=== PATIENT | male | born 1995 | race Caucasian/White ===

== ENCOUNTER 2019-11-06 00:43 | Emergency (ER) | payer OTHER ==
--- NOTE | 2019-11-06 01:59 | ER Document Report ---
HPI - HPI Time Seen by Provider: 11/06/19 01:46 Pain Level: 2 Context: Patient is a 23-year-old male that comes to the emergency department for chief complaint of left ankle injury. Patient states he was stepping out of the back of a truck and accidentally landed on an uneven surface and inverted his ankle. He states that he felt a pop and sharp pain running up his leg. He states the area has become swollen and difficult to walk on. He denies knee pain, hip pain , numbness, fall injury, or any other complaints. He takes noted in medications, denies any medical history except for a previously broken bone into the left foot but not left ankle. He denies having surgery for this. Past Medical History - General Information source: Patient - Social History Smoking Status: Never Smoker Frequency of alcohol use: None Drug Abuse: None Lives with: Family Family History: Reviewed & Not Pertinent Patient has homicidal ideation: No - Medical History Medical History: Negative Surgical Hx: Negative - Immunizations Immunizations up to date: Yes Hx Diphtheria, Pertussis, Tetanus Vaccination: Yes Vertical Provider Document - CONSTITUTIONAL General Appearance: WD/WN, No Apparent Distress - HEENT HEENT: Atraumatic, Normal ENT Exam, Normocephalic - NECK Neck: Normal Inspection - RESPIRATORY Respiratory: Breath Sounds Normal, No Respiratory Distress - CARDIOVASCULAR Cardiovascular: Regular Rate, Regular Rhythm. negative: Tachycardia - GI/ABDOMEN Gastrointestinal: Abdomen Soft, Abdomen Non-Tender. negative: Abdomen Tender - BACK Back: Normal Inspection - MUSCULOSKELETAL/EXTREMETIES Musculoskeletal/Extremeties: MAEW, FROM, Tender - There is soft tissue swelling over both the medial and lateral malleolus of the left foot, there is pain at the ankle. There is no severe swelling, discoloration, and there are no open wounds. Normal foot exam, normal toes, normal capillary refill and sensation. Normal leg, knee, hip exam. - NEURO Level of Consciousness: Awake, Alert, Appropriate Motor/Sensory: No Motor Deficit, No Sensory Deficit Course - Re-evaluation Re-evalutation: 11/06/19 01:59 Patient declined any type of pain medication. Evaluation shows soft tissue swelling at the ankle but no concerning findings otherwise, no deficits. No other signs of trauma. X-rays negative for acute findings. I discussed with patient, discussed sprain, care, expectations, follow-up, return cautions. Patient states appreciation and agreement. - Vital Signs Vital signs: Temp Pulse Resp BP Pulse Ox 99.5 F 108 H 16 158/74 H 98 11/06/19 00:55 11/06/19 00:55 11/06/19 00:55 11/06/19 00:55 11/06/19 00:55 Procedures - Immobilization Left ankle Pre-Proc Neuro Vasc Exam: Normal Immobilizer type: Juno wrap, Ankle stirrup Performed by: PCT Post-Proc Neuro Vasc Exam: Normal Alignment checked and good: Yes Discharge - Discharge Clinical Impression: Soft tissue swelling Left ankle injury Qualifiers: Encounter type: initial encounter Qualified Code(s): S99.912A - Unspecified injury of left ankle, initial encounter Condition: Stable Disposition: HOME, SELF-CARE Additional Instructions: The x-ray does not show a fracture or concerning finding. Your evaluation is consistent with sprain of the ankle joint, probably at the ATF ligament. I recommend that you ice this 3-4 times a day for 10 to 15 minutes, elevate whenever possible, use the ankle stirrup and Juno wrap along with crutches for the first 2 to 3 days. Take the anti-inflammatory as prescribed. After swelling and pain resolved resume normal activity. Follow-up with primary care. Return for any concerning or worsening symptoms including severe worsening swelling or pain. Prescriptions: Naproxen 500 mg PO BID PRN #14 tablet PRN Reason: Forms: Return to Work
--- NOTE | 2019-11-06 02:18 | RADIOLOGY REPORT (SQ) ---
EXAM DESCRIPTION: XR ANKLE 3 OR MORE VIEWS COMPLETED DATE/TME: 11/06/2019 00:56 CLINICAL HISTORY: 23 years Male, INJURY/PAIN COMPARISON: None. Findings: Bones, joints, and soft tissues of the LEFT XR ANKLE 3 OR MORE VIEWS appear intact. IMPRESSION: No acute findings.
[2019-11-06 03:08] VITALS: BP 147/58
== END 2019-11-06 03:15 | disposition home or self-care (01) ==
LOC: ER 00:43
PROC: 2W3RX1Z Immobilization of Left Lower Leg using Splint (ICD-10-PCS; principal; 2019-11-06)
DX: S99.912A Unspecified injury of left ankle, initial encounter (principal); M79.89 Other specified soft tissue disorders; X50.1XXA Overexertion from prolonged static or awkward postures, initial encounter
CPT/HCPCS: 99283